=== PATIENT | female | born 1990 | race Caucasian/White ===

== ENCOUNTER 2024-07-31 15:52 | Emergency (ER) | payer OTHER ==
[~2024-07-31] VITALS: Ht 167.6 cm; Wt 78.1 kg
[~2024-07-31 15:52] MED LIST: IMITREX6 MG/0.5 M SUB-Q; PAMELOR10 MG PO; PIMTREA 28 DAY1 EACH PO
[2024-07-31] MEDS ORDERED: ondansetron HCL 4 MG/2 ML VIAL IV ONE (16:15)
[2024-07-31 16:19] LABS: BILIRUBIN, URINE POSITIVE (negative); BLOOD/HGB, URINE TRACE-I (Negative); KETONE, URINE >=80 (Negative); LEUK ESTERASE, URINE NEGATIVE (negative); NITRITE, URINE NEGATIVE (negative); PH, URINE 5.5 (5-7)
[2024-07-31] MEDS ORDERED: MEDROXYPROGESTE10 MG PO (16:26)
[2024-07-31 16:28] LABS: BASOPHILS 0.5 % (0.1-1.2); EOSINOPHILS 0 % (0.7-5.8); HEMATOCRIT 43.6 % (34.1-44.9); HEMOGLOBIN 14.6 g/dL (11.2-15.7); LYMPHOCYTES 5.9 % (19.3-51.7); MCH 31.1 PG (25.6-32.2); MCHC 33.5 g/dL (32.2-35.5); MONOCYTES 8.7 % (4.7-12.5); NEUTROPHILS 84.6 % (34.0-71.1); PLATELET COUNT 199 K/uL (182-369); RBC 4.69 M/uL (3.93-5.22)
[2024-07-31 16:43] LABS: ALBUMIN 4.1 g/dL (3.4-5.0); ALBUMIN/GLOBULIN RATIO 1.17 (1.1-2.4); ANION GAP 12.9 (7-21); BILIRUBIN, TOTAL 0.7 mg/dL (0.2-1.0); BUN/CREATININE RATIO 14.28 (6.0-28.6); CALCIUM 8.6 mg/dL (8.5-10.1); CREATININE, SERUM 0.7 mg/dL (0.55-1.02); POTASSIUM 3.9 mmol/L (3.5-5.1); PROTEIN, TOTAL 7.6 g/dL (6.4-8.2)
[2024-07-31] MEDS ORDERED: SODIUM CHLORIDE 0.9% 1,000 ML IV PRN (18:15)
[2024-07-31] MEDS ORDERED: KETOROLAC TROMETHAMINE 15 MG/ML VIAL IV ONE (19:00)
[2024-07-31] MEDS ORDERED: ONDANSETRON ODT8 MG PO (19:28)
[2024-07-31] MEDS ORDERED: ONDANSETRON 4 MG HOME.PACK SL ONE (20:00)
[2024-07-31 20:02] VITALS: BP 109/73
== END 2024-07-31 20:02 | disposition home or self-care (01) ==
LOC: ED 15:52
PROVIDERS: Emergency Medicine
DX: A08.4 Viral intestinal infection, unspecified (principal); Z88.1 Allergy status to other antibiotic agents
CPT/HCPCS: 36415; 80053; 81003; 83690; 84703; 85025; 96361; 96374; 96375; 99284-25; A9270; J1885; J2405; J7030